=== PATIENT | female | born 1975 | race Caucasian/White ===

== ENCOUNTER 2022-10-05 17:32 | Emergency (ER) | payer BC, SELFPAY ==
[2022-10-05 18:15] VITALS: BP 136/72; PULSE 87; RESP 20; TEMP 36.8; O2SAT 99; BMI 23.9
--- NOTE | 2022-10-05 18:30 | EXP.UTC ---
Discharge Plan Disposition Patient Disposition: Home, Self-Care Condition: Good Prescriptions Prescriptions: New cephalexin 500 mg capsule 500 mg PO QID 7 Days Qty: 28 0RF Referrals Follow up/Referrals: Provider,Referral, MD [Primary Care Provider] - See instructions Activity Restrictions/Add. Instructions Additional Instructions/Restrictions: Keep the wound clean and dry. Keep a dressing on it if you are going to be getting it dirty. Watch the wound for signs of infection, such as redness, swelling, drainage, fever. etc. Take tylenol or ibuprofen for pain. Follow up with you regular doctor or return here for any issues or problems. Return in 7 to 10 days to have the sutures removed. GO TO THE ER FOR ANY WORSENING SYMPTOMS OR CONCERNS. Clinical Impressions Clinical Impression: Laceration of hand, left Instructions Patient Instructions: DI for Laceration Repair, DI for Laceration Repair -- Simple Discharge ED Provider: Marvin Thakur [facility] [place] HPI General Stated complaint: [id number] Lac to LT hand Time Seen by Provider: 10/05/22 18:30 History of Present Illness Provider Complaint: She was washing dishes when she broke a wine glass and received a laceration on the top of her left hand. Related Data Previous Rx's Medication Instructions Recorded cephalexin 500 mg capsule 500 mg PO QID 7 days #28 caps 10/05/22 Allergies Allergy/AdvReac Type Severity Reaction Status Date / Time Penicillins Allergy Verified 10/05/22 19:01 [facility] Disclaimer: The information contained in this section may have been updated after the patient was seen, as this information can be updated by other users. Social History Smoking Status: Never smoker alcohol intake: never current occupational status: employed Travel in the last 8 weeks: None ROS Obtained: Yes All systems reviewed & no additional complaints except as documented Constitutional Constitutional: Denies chills and Denies fever(s) Eyes Eyes: Denies eye discharge ENT Ears, Nose, Mouth, and Throat: Denies dizziness, Denies otalgia and Denies sore throat Cardiovascular Cardiovascular: Denies chest pain Respiratory Respiratory: Denies shortness of breath, Denies chest congestion, Denies cough, Denies stridor and Denies wheezing Gastrointestinal Gastrointestingal: Denies nausea or vomiting Musculoskeletal Musculoskeletal: Reports system reviewed and no additional complaints, except as documented and Denies arthralgias Integumentary/Breasts Skin/Breast: Reports as per HPI Neurologic Neurologic: Denies dizziness and Denies paresthesias Allergic/Immunologic Allergic/Immunologic: Denies wheezing Physical Exam General General appearance: alert and in no apparent distress Head Head exam: atraumatic, normocephalic and normal inspection Eye Eye exam: Present normal appearance, PERRL and EOMI ENT ENT exam: Present normal exam, normal oropharynx, mucous membranes moist, TM's normal bilaterally and normal external ear exam Neck Neck exam: Present normal inspection, full ROM and trachea midline; Absent meningismus or lymphadenopathy Chest Chest inspection: Present normal inspection and symmetric chest wall rise; Absent tenderness Respiratory Respiratory exam: Present normal lung sounds bilaterally; Absent respiratory distress Cardiovascular Cardiovascular exam: Present regular rate and normal rhythm; Absent JVD Abdominal Exam Abdominal exam: Present soft and normal bowel sounds; Absent distention, tenderness or guarding Extremities Exam Extremities exam: Present normal inspection, full ROM and normal capillary refill; Absent calf tenderness Back Exam Back exam: Present normal inspection; Absent tenderness Neurological Exam Neurological exam: Present alert and oriented X3 Psychiatric Psychiatric exam: Present normal affect and normal mood Skin Skin exam: Present other (On the dorsal
[2022-10-05 20:14] VITALS: BP 136/72; PULSE 87; RESP 20; TEMP 36.8; O2SAT 99
--- NOTE | 2022-10-05 20:15 | PC.NURSE ---
Pt stated that she received tdap in 2013 and didn't want another shot.
== END 2022-10-05 20:13 | disposition home or self-care (01) ==
PROVIDERS: Emergency Provider Nurse Practitioner Family
DX: S61.412A Laceration without foreign body of left hand, initial encounter (principal); W25.XXXA Contact with sharp glass, initial encounter
CPT/HCPCS: 12001; 99213; 99214; G0463

== ENCOUNTER 2024-01-12 16:41 | Emergency (ER) | payer BC, SELFPAY ==
[2024-01-12 16:55] VITALS: BP 152/68; PULSE 58; RESP 18; TEMP 36.9; O2SAT 99; BMI 22.3
--- NOTE | 2024-01-12 17:03 | ED_ITS ---
Discharge Plan Disposition Patient Disposition: Home, Self-Care Condition: Good Prescriptions Prescriptions: New prednisone 20 mg tablet 20 mg PO BID 3 Days Qty: 6 0RF colchicine 0.6 mg tablet 0.6 mg PO BID Qty: 30 0RF Rx Instructions: Take 2 tablets followed by 1 tablet 1 hour later. Tomorrow take one tablet twie a day until 48 hours following the the flare. naproxen 500 mg tablet 500 mg PO BID PRN (Reason: pain) Qty: 30 0RF No Action propranolol 10 mg tablet 10 mg PO TIDP PRN (Reason: Anxiety) Patient Comments: TAKE 1 TO 3 TABLETS BY MOUTH THREE TIMES DAILY NEEDED trazodone 100 mg tablet 100 mg PO HS Patient Comments: TAKE 1 TO 2 TABLETS BY MOUTH EVERY DAY AT BEDTIME bupropion HCl 150 mg tablet extended release 24 hr 150 mg PO DAILY Azstarys 52.3 mg- 10.4 mg capsule 1 cap PO AM Patient Comments: TAKE 1 CAPSULE BY MOUTH IN THE MORNING Referrals Follow up/Referrals: Provider,Referral, MD [Primary Care Provider] - See instructions Clinical Impressions Clinical Impression: Gout Qualifiers: Gout site: toe Gout etiology: unspecified cause Chronicity: acute Instructions Patient Instructions: DI for Gout Discharge ED Provider: Aline Jacobson [facility] General Stated complaint: foot pain, swelling Mode of Arrival: Ambulatory Source of Information: Patient Limitations: No Limitations Time Seen by Provider: 01/12/24 17:01 Description of Symptoms (Recalled from Triage Doc. by RN): PATIENT C/O WARMTH, SWELLING AND PAIN TO LEFT GREAT TOE JOINT THAT STARTED THIS MORNING HEENT Symptoms (Recalled from RN notes): No Resp Symptoms (Recalled from RN notes): No Skin Symptoms (Recalled from RN notes): No MS Symptoms (Recalled from RN notes): Yes Functional Status (Recalled from RN notes): WNL History of Present Illness Provider Complaint: Pt reports that she has had pain, swelling, and warmth at the base of her left great toe. She denies ever having gout. She reports that 20+ years ago she had a bunion removed from that site. She reports drinking alcohol every other night 1-2 drinks. Related Data Home Medications Medication Instructions Recorded Confirmed bupropion HCl 150 mg 24 hr tablet, 150 mg PO DAILY 01/12/24 01/12/24 extended release propranolol 10 mg tablet 10 mg PO TIDP PRN Anxiety 01/12/24 01/12/24 serdexmethylphenidate 52.3 1 cap PO AM 01/12/24 01/12/24 mg-dexmethylphenidate 10.4 mg capsule (Azstarys) trazodone 100 mg tablet 100 mg PO HS 01/12/24 01/12/24 Previous Rx's Medication Instructions Recorded colchicine 0.6 mg tablet 0.6 mg PO BID #30 tabs 01/12/24 naproxen 500 mg tablet 500 mg PO BID PRN pain #30 tabs 01/12/24 prednisone 20 mg tablet 20 mg PO BID 3 days #6 tabs 01/12/24 Allergies Allergy/AdvReac Type Severity Reaction Status Date / Time Penicillins Allergy Severe Anaphylaxis Verified 01/12/24 17:01 morphine Allergy Hallucinati Verified 01/12/24 17:01 ng Worker's Comp Is this a Worker's Comp case?: No [facility] Disclaimer: The information contained in this section may have been updated after the patient was seen, as this information can be updated by other users. Medical History (Updated 01/12/24 @ 18:05 by Aline Jacobson APRN) Anxiety Surgical History (Updated 01/12/24 @ 17:03 by Luh Gallegos RN) History of tubal ligation History of tonsillectomy History of section History of cholecystectomy Social History (Updated 10/05/22 @ 21:43 by Marvin Thakur APRN) Smoking Status: Never smoker alcohol intake: never current occupational status: employed Travel in the last 8 weeks: None ROS Obtained: Yes All systems reviewed & no additional complaints except as documented Constitutional Constitutional: Reports system reviewed and no additional complaints, except as documented Eyes Eyes: Reports system reviewed and no additional complaints, except as documented ENT Ears, Nose, Mouth, and Throat: Reports system reviewed and no additional complaints, except as documented Cardiovascular Cardiovascular: Reports system reviewed and no additional complaints, except as documented Respiratory Respiratory: Reports system reviewed and no additional complaints, except as documented Gastrointestinal Gastrointestingal: Reports system reviewed and no additional complaints, except as documented Genitourinary Female Genitourinary: Reports system reviewed and no additional complaints, except as documented Musculoskeletal Musculoskeletal: Reports abnormal gait, Reports arthralgias and Reports joint swelling Integumentary/Breasts Skin/Breast: Reports system reviewed and no additional complaints, except as do cumented Neurologic Neurologic: Reports system reviewed and no additional complaints, except as documented and Reports abnormal gait Endocrine Endocrine: Reports system reviewed and no additional complaints, except as documented Hematologic/Lymphatic Henatologic/Lymphatic: Reports system reviewed and no additional complaints, except as documented Allergic/Immunologic Allergic/Immunologic: Reports system reviewed and no additional complaints, except as documented Physical Exam General General appearance: alert and in no apparent distress Head Head exam: atraumatic and normocephalic Eye Eye exam: Present normal appearance ENT ENT exam: Present normal exam Neck Neck exam: Present normal inspection Chest Chest inspection: Present normal inspection and symmetric chest wall rise Respiratory Respiratory exam: Present normal lung sounds bilaterally Cardiovascular Cardiovascular exam: Present regular rate, normal rhythm and normal heart sounds Abdominal Exam Abdominal exam: Present soft and normal bowel sounds Extremities Exam Extremities exam: Present tenderness, edema and joint swelling Expanded Lower Extremity Exam Left: Hip/Pelvis exam: Present normal inspection Upper leg exam: Present normal inspection Knee exam: Present normal inspection Lower leg exam: Present normal inspection Ankle exam: Present normal inspection Foot/toe exam: Present tenderness, swelling, erythema and tenderness at base of 5th metatarsal Neurovascular/Tendon exam: Present normal capillary refill Gait: observed and limited by pain Back Exam Back exam: Present normal inspection Neurological Exam Neurological exam: Present alert and oriented X3 Psychiatric Psychiatric exam: Present normal affect and normal mood Skin Skin exam: Present warm, dry and intact Lymphatic Lymphatic Findings: no adenopathy Medical Decision Making Ye Inquiry Pt receiving controlled substance: No Ye was queried for this patient: No Vital Signs: 01/12/24 16:55 Temperature 98.4 F Temperature Source Oral Pulse Rate [Left Brachial] 58 L Respiratory Rate 18 Blood Pressure [Left Arm] 152/68 H Blood Pressure Mean [Left Arm] 96 Blood Pressure Source [Left Arm] Automatic Cuff Blood Pressure Position [Left Arm] Sitting 02 Sat by Pulse Oximetry 99 Oxygen Delivery Method Room Air Orders (Tests/Meds): ORDERS Category Date Time Status Uric Acid Stat Lab 01/12/24 17:03 Ordered Radiology Data #1: Image(s): Foot/Toes Image Reviewed: Yes I reviewed the patient's radiology results and Yes I have reviewed radiologist's interpretation FINDINGS: Bones/joints: There is mild hallux valgus with swelling over the 1st metatarsophalangeal joint nonspecific. No acute fracture or dislocation. No aggressive osseous lesion. Soft tissues: See Bones/joints finding. IMPRESSION: There is mild hallux valgus with swelling over the 1st metatarsophalangeal joint, nonspecific. Findings can be seen in gouty arthropathy. No evidence for osteomyelitis.
--- NOTE | 2024-01-12 17:11 | XR_ITS ---
PROCEDURE INFORMATION: Exam: XR Left Foot Exam date and time: 01/12/2024 5:13 PM Age: 48 years old Clinical indication: Pain; Foot; Left; Additional info: Swelling, red, warm great toe joint TECHNIQUE: Imaging protocol: Radiologic exam of the left foot. Views: 3 or more views. COMPARISON: No relevant prior studies available. FINDINGS: Bones/joints: There is mild hallux valgus with swelling over the 1st metatarsophalangeal joint nonspecific. No acute fracture or dislocation. No aggressive osseous lesion. Soft tissues: See Bones/joints finding. IMPRESSION: There is mild hallux valgus with swelling over the 1st metatarsophalangeal joint, nonspecific. Findings can be seen in gouty arthropathy. No evidence for osteomyelitis.
[2024-01-12 17:33] LABS: Uric Acid 3.6 mg/dl (2.5-6.2)
[2024-01-12 18:06] VITALS: BP 152/68; PULSE 58; RESP 18; TEMP 36.9; O2SAT 99
== END 2024-01-12 18:09 | disposition home or self-care (01) ==
PROVIDERS: Emergency Provider Nurse Practitioner Family
DX: M10.072 Idiopathic gout, left ankle and foot (principal); M79.675 Pain in left toe(s)
CPT/HCPCS: 73630; 84550; 99212; 99214; G0463